=== PATIENT | female | born 1950 | race Caucasian/White ===

== ENCOUNTER 2017-10-04 21:20 | Emergency (ER) | payer OTHER ==
[~2017-10-04 21:20] MED LIST: FLEXERIL10 MG PO; MEDROL DOSEPAK1 PAC PO; NAPROXEN500 M1 PO
[2017-10-04 21:31] VITALS: BP 139/88
--- NOTE | 2017-10-04 22:55 | ED GENERAL ADULT ---
History of Present Illness General Chief Complaint: Upper Extremity Problem Stated Complaint: "RT WRIST PAIN" Source: patient Exam Limitations: no limitations Vital Signs & Intake/Output Vital Signs & Intake/Output Vital Signs Date Time Temp Pulse Resp B/P B/P Pulse O2 O2 Flow FiO2 Mean Ox Delivery Rate 10/04 2131 98.3 76 18 139/88 97 Room Air Allergies Coded Allergies: NO KNOWN ALLERGIES (07/28/14) Reconcile Medications CYCLOBENZAPRINE HCL (Flexeril) 10 MG TAB 1 TAB PO TID PRN SPASM Avoid operating motor vehicle or heavy machinery Methylprednisolone. (Medrol) 1 PAC PAC 1 PAC PO DAILY INFLAMMATION USE DIRECTED Naproxen 500 MG ECT 1 TAB PO BID PRN PAIN Triage Note: PT TO TRIAGE C.O R WRIST PAIN, PT SAW ORTHOPEDIC YESTERDAY HAD NEGATIVE XRAY, WAS GIVEN BRACE. 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 +ROM, -NUMBNESS/TINGLING. PT TOOK 600MG IBUPROFEN LUNG SPLITTER. NO OBVIOUS DEFORMITY NOTED. Triage Nurses Notes Reviewed? yes Onset: Gradual Duration: day(s): Timing: constant HPI: 66-year-old right-hand dominant female with no known past medical history presenting with right wrist pain times one to 2 weeks. Patient was seen by urgent care yesterday and had an unremarkable x-ray. Was placed in a wrist brace and given NSAIDs, which she has not yet tried. Patient has a follow-up appointment already scheduled with her primary care provider and with a hand specialist. Presents to the emergency department tonight because she was cooking and lifting pots and pans and had acute worsening of her right wrist pain. Denies numbness or paresthesias. Denies fevers or joint swelling. (Funmilayo Cutler) Past History Travel History Traveled to [place] past 21 day No Medical History Any Pertinent Medical History? 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 No (Funmilayo Cutler) Review of Systems Review of Systems Constitutional: Reports: no symptoms. EENTM: Reports: no symptoms. Respiratory: Reports: no symptoms. Cardiovascular: Reports: no symptoms. GI: Reports: no symptoms. Genitourinary: Reports: no symptoms. Musculoskeletal: Reports: see HPI. Skin: Reports: no symptoms. Neurological/Psychological: Reports: no symptoms. Hematologic/Endocrine: Reports: no symptoms. Immunologic/Allergic: Reports: no symptoms. All Other Systems: Reviewed and Negative (Funmilayo Cutler) Physical Exam Physical Exam General Appearance: well developed/nourished, no apparent distress, alert, awake , comfortable Head: atraumatic, normal appearance, active bleeding Eyes: Bilateral: normal appearance. Neck: normal inspection Respiratory: normal breath sounds, lungs clear Cardiovascular: regular rate/rhythm Gastrointestinal: soft, non-tender Back: normal inspection Extremities: right wrist: no edema, deformities, erythema Positive tenderness to palpation over the lateral aspect of the wrist Mild decrease in range of motion of the wrist joint Sensation intact to median/radial/ulnar nerves Mild decrease in motor strength at the wrist joint, 5 out of 5 motor strength in all digits of the right hand Radial pulse 2+ Neurologic/Psych: awake, alert, oriented x 3, normal gait, normal mood/affect Skin: intact, normal color, warm/dry Core Measures ACS in differential dx? No CVA/TIA Diagnosis: No Sepsis Present: No Sepsis Focused Exam Completed? No (Funmilayo Cutler) Progress Differential Diagnoses I considered the following diagnoses in my evaluation of the patient: [Likely with tendinitis, low concern for fracture versus septic joint versus dislocation ] Plan of Care: Exam consistent with a tendinitis, instructed to continue wearing her brace and to begin using the NSAIDs that were prescribed to her. Instructed to follow up with her PMD and hand surgeon as scheduled. Given strict return precautions. Initial ED EKG: none (Funmilayo Cutler) Departure Departure Disposition: HOME OR SELF CARE Condition: Stable Clinical Impression Primary Impression: Right wrist pain Referrals: Yuly SANDERS,Yair Ramirez (PCP/Family) Additional Instructions: Continue taking naproxen as needed for pain. Continue wearing her wrist brace. Follow-up with your primary care provider and hand specialist as scheduled. Return to the emergency department for any normal worsening symptoms. Departure Forms: Customer Survey General Discharge Information (Funmilayo Cutler) PA/MOBILE PET GROOMER Co-Sign Statement Statement: ED Attending supervision documentation- x I saw and evaluated the patient. I have also reviewed all the pertinent lab results and diagnostic results. I agree with the findings and the plan of care as documented in the PA's/MOBILE PET GROOMER's documentation. [] I have reviewed the ED Record and agree with the PA's/MOBILE PET GROOMER's documentation. [] Additions or exceptions (if any) to the PAs/MOBILE PET GROOMER's note and plan are summarized below: [] (Pan SANDERS,Omi) Critical Care Note Critical Care Note Critical Care Time: non-applicable (Funmilayo Cutler)
== END 2017-10-05 00:07 ==
LOC: ERH 21:20
DX: M25.531 Pain in right wrist (principal)